=== PATIENT | female | born 1995 | race Caucasian/White ===

== ENCOUNTER → 2024-07-05 16:54 | Outpatient (REF) | payer OTHER, SELFPAY | LOC: PNTC 16:54 | PROVIDERS: ATTENDING PHYSICIAN Obstetrics & Gynecology | DX: Z36.0 Encounter for antenatal screening for chromosomal anomalies (principal); Z36.82 Encounter for antenatal screening for nuchal translucency | CPT/HCPCS: 76801; 76813 ==

== ENCOUNTER → 2024-08-31 16:28 | Outpatient (REF) | payer OTHER, SELFPAY | LOC: PNTC 16:28 | PROVIDERS: ATTENDING PHYSICIAN Obstetrics & Gynecology | DX: O99.320 Drug use complicating pregnancy, unspecified trimester (principal) | CPT/HCPCS: 76811 ==

== ENCOUNTER → 2024-09-01 08:58 | Outpatient (REF) | payer OTHER, SELFPAY | LOC: RAD 08:58 | PROVIDERS: ATTENDING PHYSICIAN Obstetrics & Gynecology; FAMILY PHYSICIAN Physician Assistant Medical | DX: R10.11 Right upper quadrant pain (principal) | CPT/HCPCS: 76700 ==

== ENCOUNTER → 2024-09-28 15:55 | Outpatient (REF) | payer OTHER, SELFPAY | LOC: PNTC 15:55 | PROVIDERS: ATTENDING PHYSICIAN Obstetrics & Gynecology | DX: Z36.3 Encounter for antenatal screening for malformations (principal); Z36.2 Encounter for other antenatal screening follow-up | CPT/HCPCS: 76816 ==

== ENCOUNTER → 2024-11-09 16:00 | Outpatient (REF) | payer OTHER, SELFPAY ==
--- NOTE | 2024-11-09 12:53 | PN.DIAED06 ---
Meal Plan - Gestational
- Breakfast
Gestational Diabetes Meal Plan Name: 1800 calories
Breakfast - Total Carbohydrate (grams): 30
Breakfast - Starch Carbohydrate: 1
Breakfast - Fruit Carbohydrate: 0
Breakfast - Milk Carbohydrate: 1
Breakfast - Nonstarchy Vegetables: Yes
Breakfast - Meat/Protein: 1
Breakfast - Fat: 2
- Morning Snack
Morning Snack - Total Carbohydrate (grams): 30
Morning Snack - Starch Carbohydrate: 1
Morning Snack - Fruit Carbohydrate: 0
Morning Snack - Milk Carbohydrate: 1
Morning Snack - Nonstarchy Vegetables: Yes
Morning Snack - Meat/Protein: 0.5
Morning Snack - Fat: 0
- Lunch
Lunch - Total Carbohydrate (grams): 45
Lunch - Starch Carbohydrate: 2
Lunch - Fruit Carbohydrate: 1
Lunch - Milk Carbohydrate: 0
Lunch - Nonstarchy Vegetables: Yes
Lunch - Meat/Protein: 2
Lunch - Fat: 1
- Afternoon Snack
Afternoon Snack - Total Carbohydrate (grams): 30
Afternoon Snack - Starch Carbohydrate: 1
Afternoon Snack - Fruit Carbohydrate: 1
Afternoon Snack - Milk Carbohydrate: 0
Afternoon Snack - Nonstarchy Vegetables: Yes
Afternoon Snack - Meat/Protein: 1
Afternoon Snack - Fat: 0
- Dinner
Dinner - Total Carbohydrate (grams): 45
Dinner - Starch Carbohydrate: 2
Dinner - Fruit Carbohydrate: 0
Dinner - Milk Carbohydrate: 1
Dinner - Nonstarchy Vegetables: Yes
Dinner - Meat/Protein: 2
Dinner - Fat: 2
- Evening Snack
Evening Snack - Total Carbohydrate (grams): 30
Evening Snack - Starch Carbohydrate: 1
Evening Snack - Fruit Carbohydrate: 0
Evening Snack - Milk Carbohydrate: 1
Evening Snack - Nonstarchy Vegetables: Yes
Evening Snack - Meat/Protein: 1
Evening Snack - Fat: 1
--- NOTE | 2024-11-09 17:11 | PN.DE ---
Diabetes Education
- -
11/09/2024: Gestational Diabetes Consult
Met with Kathleen and her today for medical nutrition therapy. She is , currently at 30 weeks of gestation with NOAH 01/17/2025
Explained glucose metabolism in body and what occurs during to cause increase blood sugar. Discussed importance of keeping BS well controlled to avoid complications to the baby during and after (macrosomia, hypoglycemia).
Explained to Kathleen that she is at increased risk of developing T2DM in the future. Patient reports she has a [employer] Next glucose monitors at home and has a [employer] glucometer arriving soon. Glucose fasting is 83, 2 hours postprandial is 77, 79.
She and her eat only whole foods, nothing processed.
Educated on expected results for FBS <95 mg/dL and 2 hr pp <120 mg/dL. Discussed macronutrients, provided with 1800 trell GDM meal plan. She feels that she may not be able to eat all the food on the meal plan and will contact us to review glucose logs
and food choices. Log sheet provided for her to record results, she will send a 4-day meal log with her FBG and 2hr Post prandial glucose numbers to this office for review. She works out daily performing strength training exercises.
She will send all her glucose readings to Sonia at [facility] every Wednesday.
She was encouraged to reach out should she require insulin.
== END ==
LOC: DES 16:00
PROVIDERS: ATTENDING PHYSICIAN Obstetrics & Gynecology
DX: O24.419 Gestational diabetes mellitus in pregnancy, unspecified control (principal)
CPT/HCPCS: 99078

== ENCOUNTER → 2024-11-14 15:59 | Outpatient (REF) | payer OTHER, SELFPAY | LOC: PNTC 15:59 | PROVIDERS: ATTENDING PHYSICIAN Obstetrics & Gynecology | DX: K58.1 Irritable bowel syndrome with constipation (principal); O99.320 Drug use complicating pregnancy, unspecified trimester; O24.419 Gestational diabetes mellitus in pregnancy, unspecified control | CPT/HCPCS: 76816 ==

== ENCOUNTER → 2024-12-11 08:05 | Outpatient (REF) | payer OTHER, SELFPAY | LOC: PNTC 08:05 | PROVIDERS: ATTENDING PHYSICIAN Obstetrics & Gynecology | DX: O24.419 Gestational diabetes mellitus in pregnancy, unspecified control (principal) | CPT/HCPCS: 76816 ==

== ENCOUNTER 2024-12-23 16:34 | Observation (INO) | payer OTHER, SELFPAY ==
[2024-12-23 16:44] VITALS: BP 134/74; BMI 30.1
== END 2024-12-23 17:53 | disposition home or self-care (01) ==
LOC: LDRP 16:34
PROVIDERS: ADMITTING PHYSICIAN Obstetrics & Gynecology
DX: O47.03 False labor before 37 completed weeks of gestation, third trimester (principal); O24.410 Gestational diabetes mellitus in pregnancy, diet controlled; Z3A.36 36 weeks gestation of pregnancy; O09.33 Supervision of pregnancy with insufficient antenatal care, third trimester; K58.1 Irritable bowel syndrome with constipation
CPT/HCPCS: 59025; 36415; 86850; 86900; 86901; G0378

== ENCOUNTER 2024-12-27 16:52 | Observation (INO) | payer OTHER, SELFPAY ==
[2024-12-27 16:59] VITALS: BP 135/68; BMI 30.3
== END 2024-12-27 17:30 | disposition home or self-care (01) ==
LOC: LDRP 16:52
PROVIDERS: ADMITTING PHYSICIAN Obstetrics & Gynecology
DX: O36.8130 Decreased fetal movements, third trimester, not applicable or unspecified (principal); Z3A.37 37 weeks gestation of pregnancy
CPT/HCPCS: G0378

== ENCOUNTER 2025-01-02 09:02 | Inpatient (IN) | payer OTHER, SELFPAY ==
[2025-01-02 09:24] VITALS: BP 121/77; BMI 30.1
[2025-01-02 10:19] LABS: Glucose - Point of Care 75 mg/dl (70-99)
[2025-01-02 10:31] LABS: % Basophils 0.3 % (0-2); % Eosinophils 0.4 % (0-6); % Lymphocytes 12.7 % (20.5-51.1); % Monocytes 6.1 % (1.7-9.3); % Neutrophils 79.5 % (42.2-75.2); Absolute Eosinophils 0.1 10^3/uL (0-0.7); Absolute Immature Granulocytes 0.1 10^3/uL (0-0.05); Absolute Lymphocytes 1.4 10^3/uL (1.2-3.4); Absolute Monocytes 0.7 10^3/uL (0.1-0.6); Absolute Neutrophils 8.9 10^3/uL (1.4-6.5); Hematocrit 37.4 % (37.0-47.0); Hemoglobin 13.2 g/dL (12.0-16.0); Mean Corp Hgb Conc. 35.3 g/dL (33.0-37.0); Mean Corpuscular Hgb 31.1 pg (27.0-31.0); Mean Platelet Volume 12.7 fL (7.4-10.4); Nucleated Red Blood Cells % 0 %; Platelet Count 187 10^3/uL (130-400); Red Blood Cell Count 4.25 10^6/uL (4.20-5.40); Red Cell Dist. Width 13.6 % (11.5-14.5); White Blood Cell Count 11.2 10^3/uL (4.8-10.8)
[2025-01-02] MEDS: PITOCIN 30 UNITS/NSS 500 ML IV ×2 (11:09→20:34)
[2025-01-02 14:23] LABS: Glucose - Point of Care 70 mg/dl (70-99)
[2025-01-02] MEDS: LR 1000 IV ×2 (14:29→17:38)
[2025-01-02] MEDS: STADOL 1 MG IV (14:58)
[2025-01-02] MEDS: SUBLIMAZE 100 MCG EPIDURAL (16:00)
[2025-01-02] MEDS: FENTANYL/BUPIVACAINE 100 EPIDURAL (16:01)
[2025-01-02 18:19] LABS: Glucose - Point of Care 70 mg/dl (70-99)
[2025-01-02] MEDS: BICITRA 30 ML PO (19:20)
[2025-01-02] MEDS: TYLENOL 1000 MG PO (19:20)
[2025-01-02] MEDS: ZITHROMAX INFUSION 250 IV (19:20)
[2025-01-02] MEDS: ANCEF 10 IV (19:21)
--- NOTE | 2025-01-02 21:17 | HPS.HSE ---
Family Physician
-
Family Physician: Ubaldo Armenta
Chief Complaint
-
SROM
History of Present Illness
HPI: Patient is a 29yo @37.6 who presents with complaints of a large gush of fluid at 0620. She reports irregular contractions. Denies VB. +FM
complications:
- GDMA1
- Right pelvic kidney
PMHx: IBS-C, right pelvic kidney
Meds: PNV
Surghx: denies
NKDA
Socialx: denies tobacco, etoh or illicit drug use
Famhx: non-contributory
labs: Blood type O+, Ab neg, RPR non-reactive, UCx neg, HBsAg neg, HIV neg, GCCT neg, Rubella immune, Hep C neg, GBS neg, 1hr 164, 3hr abnormal,
Medical History
Past Medical History
Past Medical History: Reports Other
Additional Past Medical History:
IBS-C, right pelvic kidney
Past Surgical History: Reports None
Social History
Tobacco: Non-smoker
Alcohol: None
Drug: None
Family History
Family History: Not pertinent
Allergies / Home Medications
Allergies reflects when Allergies were last updated in [facility].
Home Medications with original date entered in [facility]
Allergy/Medication List:
NKDA
Meds: PNV
Review of Systems
-
A 12 point ROS was completed and negative except as noted: Yes
Physical Exam
Vital Signs
Vital Signs
Temp Pulse Resp BP
98.9 F 86 18 121/77
01/02/25 09:24 01/02/25 09:24 01/02/25 09:24 01/02/25 09:24
Physical Exam
General: Well Developed and Well Nourished
HEENT: NormoCephalic
Respiratory: Non Labored Respirations
Cardiac: Regular Rhythm
Genito-urinary: Other (grossly ruptured for clear fluid)
Skin: Warm and Dry
Neuro: Awake and Alert
Psych: Calm
Laboratory Results
-
01/02/25 10:07
Impression/Plan
-
IMPRESSION:
29yo @37.6 SROM, GDMA1
PLAN:
- Admission labs
- BG q4h while in latent labor, q2h in active labor
- Reviewed expectant management vs starting Pitocin. Patient agrees to start Pitocin
- cEFM/toco. Category 1 tracing
--- NOTE | 2025-01-02 21:37 | OR.RPT ---
Operative Report
Operative Report
Procedure date: 01/02/2025
Preop diagnosis: IUP @37.6, spontaneous rupture of membranes, GDMA1, non-reassuring heart tones
Postop diagnosis: same
Procedure: Primary low transverse section
Surgeon: Chelsie
Anesthesia: Chambers, epidural
QBL: 295mL
Complications: small laceration above infants left eyebrow- Dermabond and steri strips placed by NICU
Findings: Viable male born at 1945 from direct occiput posterior, Apgars 8/9, loose nuchal x1, normal appearing uterus, bilateral fallopian tubes and ovaries, uterus boggy- Methergine x1 given with improvement in tone
Indication: Patient is a 29yo @37.6 who presented to Labor and Delivery with complaints of leakage of fluid. She was found to be grossly ruptured for clear fluid. She was 1/80/-2 and was started on Pitocin. She progressed to 2/80/-2 and
received a dose of Stadol and shortly after she received an epidural. After the epidural placement, there was low baseline of 90-110s. There were still accelerations and moderate variability. She then started to have occasional variable
decelerations and minimal variability despite multiple position changes and fluid boluses. She was 5/90/-1. Recommendation was made for section for non-reassuring heart tones. Risks, benefits and alternatives to section
reviewed and consents signed. Azithromycin and Ancef were ordered for antibiotic prophylaxis. Anesthesia and NICU were notified.
Procedure: Patient was taken to the operating room where epidural was bolused and found to be adequate. 2g of Ancef and 500mg azithromycin were given for antibiotic prophylaxis. The abdomen was prepped with ChloraPrep. The patient was draped in the
normal sterile fashion. She was placed in the dorsal supine position with a left lateral tilt. A Pfannenstiel incision was made with a 10 blade and carried down to the fascia with a scalpel. Hemostasis achieved with Bovie. The fascia was incised and
dissected laterally with Luong scissors. The superior aspect of the fascia was grasped with Steve clamps. The underlying rectus fascia was sharply dissected with Luong scissors. In a similar fashion the inferior aspect of the fascia was elevated with
Steve clamps and the rectus muscle was dissected off with Luong scissors. The rectus muscles were down the midline to the level of the pubic symphysis with manual dissection. The peritoneum was bluntly entered and extended using manual
traction.
Crook retractor and bladder blade were placed revealing good visualization of the bladder. The vesicouterine peritoneum was identified. A thin lower uterine segment was noted. The lower uterine segment was incised with a scalpel. Clear amniotic
fluid noted at entry. The uterine incision was extended bluntly with lateral and upward traction.
The fetus was in cephalic presentation. The head was elevated out of the pelvis with special attention paid to avoid using the uterine incision as a fulcrum. Gentle fundal pressure was applied once the head was brought to the incision. The head
delivered through the hysterotomy from direct occiput posterior position. The rest of the delivered without difficulty. Delayed cord clamping was performed. The was handed off to the action finisher. IV oxytocin was started to facilitate
uterine contractions. The placenta was delivered with fundal massage and gentle downward traction. The uterus was exteriorized. Allis clamps were placed at the apices of the hysterotomy. The inside of the uterus was wiped with a lap sponge to assure
complete removal of placental membranes. Fundal massage was performed and uterus was boggy. Methergine IM was given with improvement in tone. The uterine incision was closed with 0 Vicryl in a running locked fashion. A horizontal imbricating stitch
was done on the hysterotomy with 0 Vicryl. There was oozing along the hysterotomy and figure of eights were placed with 0 Vicryl and 2-0 Vicryl to achieve hemostasis. The hysterotomy was inspected and noted to be hemostatic. The uterus was placed
back in the abdomen. Blood clots and fluid were wiped out of the abdomen and pelvis with moist laparotomy sponges. The hysterotomy was examined and was hemostatic.
The rectus muscles and there was oozing from the right rectus muscle. Bovie cautery was used to achieve hemostasis. The fascial layer was closed in a running continuous fashion using 0 Vicryl. The subcutaneous tissue was copiously irrigated and any
small bleeding vessels were cauterized with Bovie cautery. The subcutaneous tissue was reapproximated in a running continuous fashion with 2-0 Plain. The skin was closed with 4-0 Vicryl in a subcuticular fashion and covered with skin glue. The
patient tolerated the procedure well. All sponge and instrument counts were correct times two. The patient was taken to the recovery room in stable condition. Nunez catheter was draining clear urine at the end of the procedure.
[2025-01-03] MEDS: TORADOL 15 MG IV ×4 (02:02→19:51)
[2025-01-03 04:43] LABS: Hematocrit 37.4 % (37.0-47.0); Hemoglobin 13.2 g/dL (12.0-16.0); Mean Corp Hgb Conc. 35.3 g/dL (33.0-37.0); Mean Corpuscular Hgb 31.1 pg (27.0-31.0); Mean Corpuscular Volume 88.2 fL (81.0-99.0); Mean Platelet Volume 12.2 fL (7.4-10.4); Platelet Count 188 10^3/uL (130-400); Red Blood Cell Count 4.24 10^6/uL (4.20-5.40); Red Cell Dist. Width 13.4 % (11.5-14.5); White Blood Cell Count 17.1 10^3/uL (4.8-10.8)
--- NOTE | 2025-01-03 07:43 | W.PN.ANS.POP ---
Anesthesia Post Operative
- Anesthesia Post Op Note
Vital Signs Stable-See Nursing Note: Yes
Airway Patent: Yes
Adequate Pain Control: Yes
Change in Mental Status: No
Current Postoperative Nausea & Vomiting: No (Patient taking in full diet without complication)
Anesthesia Complications: No
General Anesthetic Recall: No
Unplanned Admission: No
Post Op Hydration Adequate: Yes
- -
Pt on rounding. Ambulating without difficulty and no c/o.
[2025-01-03] MEDS: SENOKOT-S 1 TABLET PO (08:27)
[2025-01-03] MEDS: PRENATAL PLUS 1 TABLET PO (08:27)
[2025-01-04] MEDS: MOTRIN 600 MG PO ×2 (02:43→08:18)
[2025-01-04] MEDS: TYLENOL 650 MG PO ×2 (02:43→08:19)
[2025-01-04] MEDS: SENOKOT-S 1 TABLET PO (08:19)
[2025-01-04] MEDS: PRENATAL PLUS 1 TABLET PO (08:19)
--- NOTE | 2025-01-04 09:20 | W.DS.TRANS ---
DC Summary - W[employer] Person
-
Discharge Instructions:
Discharge Diagnosis/Procedures primary cs
Instructions:
Stand-Alone Forms: LDRP Delivery
Changes to Home Medications: No
Discharge Medications:
DC Medications w/original date entered in [facility]
Vitamin 1 tab PO DAILY 12/23/24
ibuprofen 600 mg tablet 600 mg PO Q6HPRN PRN cramps #90 tabs 01/04/25
Home Medication Changes
Pending Results: No
Total time spent discharging patient (in min): 15
[2025-01-05 13:44] LABS: Syphilis/T. pallidum Ab Reflex Negative (Negative)
== END 2025-01-04 13:38 | disposition home or self-care (01) | DRG 788 ==
LOC: LDRP 09:02
PROVIDERS: Student in an Organized Health Care Education/Training Program; ADMITTING PHYSICIAN Obstetrics & Gynecology
PROC: 10D00Z1 Extraction of Products of Conception, Low, Open Approach (ICD-10-PCS; 2025-01-02)
DX: O24.420 Gestational diabetes mellitus in childbirth, diet controlled (principal); Z3A.37 37 weeks gestation of pregnancy; Z37.0 Single live birth; O69.81X0 Labor and delivery complicated by cord around neck, without compression, not applicable or unspecified; O76 Abnormality in fetal heart rate and rhythm complicating labor and delivery; O32.8XX0 Maternal care for other malpresentation of fetus, not applicable or unspecified
CPT/HCPCS: 88307; 82962; 85025; 85027; 86780; 86850; 86900; 86901

== ENCOUNTER → 2025-05-29 07:56 | Outpatient (REF) | payer OTHER, SELFPAY | LOC: WDC 07:56 | PROVIDERS: ATTENDING PHYSICIAN Obstetrics & Gynecology; FAMILY PHYSICIAN Physician Assistant Medical | DX: N63.13 Unspecified lump in the right breast, lower outer quadrant (principal) | CPT/HCPCS: 76642 ==